=== PATIENT | female | born 1975 | race Caucasian/White ===

== ENCOUNTER 2020-08-21 11:50 | Outpatient (CLI) | payer OTHER | END 2020-08-21 11:51 | disposition home or self-care (01) | LOC: COV 11:50 | PROVIDERS: ATTEND Family Medicine | DX: R05 Cough (principal); Z20.828 Contact with and (suspected) exposure to other viral communicable diseases; R09.81 Nasal congestion; J02.9 Acute pharyngitis, unspecified; R53.83 Other fatigue ==

== ENCOUNTER 2021-03-30 14:32 | Outpatient (CLI) | payer OTHER ==
--- NOTE | 2021-03-30 17:49 | XRAY Report ---
PROCEDURE: Wrist 4 View LT INDICATIONS: PAIN IN LEFT THUMB TECHNIQUE: 4 views of the wrist were acquired. COMPARISON: None FINDINGS: Bones: No fractures or dislocations. No suspicious bony lesions. Severe degenerative arthritis of the first carpometacarpal joint. Scaphoid view: Scaphoid intact Soft tissues: No suspicious soft tissue calcifications. 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 Reviewed by: Edson Hilliard MD on 03/30/2021 5:48 PM PDT Approved by: Edson Hilliard MD on 03/30/2021 5:48 PM PDT Station ID: [id number]
== END 2021-03-30 14:33 | disposition home or self-care (01) ==
LOC: DI 14:32
PROVIDERS: ATTEND Family Medicine
DX: M18.12 Unilateral primary osteoarthritis of first carpometacarpal joint, left hand (principal)

== ENCOUNTER 2021-06-24 14:45 | Outpatient (CLI) | payer OTHER ==
--- NOTE | 2021-06-24 16:49 | XRAY Report ---
PROCEDURE: Hand 3 View LT INDICATIONS: L HAND PX TECHNIQUE: 3 views of the hand(s) acquired. COMPARISON: None available FINDINGS: Bones: No fractures or dislocations. No suspicious bony lesions. Severe first CMC joint space narr owing with periarticular osteophyte formation. Soft tissues: No suspicious soft tissue calcifications. IMPRESSION: Severe first CMC joint degeneration. Reviewed by: CHHAYA Obando on 06/24/2021 4:48 PM PDT Approved by: Beka Richey on 06/24/2021 4:48 PM PDT Station ID: [id number]
== END 2021-06-24 23:59 | disposition home or self-care (01) ==
LOC: DI.N 14:45
PROVIDERS: ATTEND Orthopaedic Surgery
DX: M18.12 Unilateral primary osteoarthritis of first carpometacarpal joint, left hand (principal)